=== PATIENT | female | born 2000 | race Caucasian/White ===

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

== ENCOUNTER 2020-07-08 11:00 | Inpatient (IN) ==
[2020-07-08] MEDS ORDERED: OXYTOCIN/0.9 % SODIUM CHLORIDE 30 UNITS/500 ML BAG IV ONE (18:28)
[2020-07-08] MEDS ORDERED: RINGER'S SOLUTION,LACTATED 1,000 ML IV ONE (18:28)
[2020-07-08] MEDS ORDERED: ONDANSETRON 4 MG TAB.RAPDIS PO PRN (18:28)
[2020-07-08] MEDS ORDERED: RINGER'S SOLUTION,LACTATED 1,000 ML IV PRN (18:28)
[2020-07-08] MEDS ORDERED: LIDOCAINE HCL 50 ML VIAL PERI PRN (18:28)
[2020-07-08] MEDS ORDERED: BUTORPHANOL TARTRATE 2 MG/ML VIAL IV PRN ×2 (18:28)
[2020-07-08] MEDS: MISOPROSTOL 100 MCG TABLET VG PRN ×2 (19:18→23:58)
[2020-07-08 19:53] LABS: Cocaine Ur Negative (NEGATIVE); Urine Barbiturate Negative (NEGATIVE); Urine Benzodiazepines Negative (NEGATIVE); Urine Opiates Negative (NEGATIVE); Urine PCP Negative (NEGATIVE); Urine THC Negative (NEGATIVE)
[2020-07-08] MEDS ORDERED: METHIMAZOLE 10 MG TABLET PO SCH (21:00)
[2020-07-09] MEDS: MISOPROSTOL 100 MCG TABLET VG PRN ×2 (04:31→08:26)
[2020-07-09] MEDS: ATENOLOL 25 MG TABLET PO SCH (09:22)
[2020-07-09] MEDS: METHIMAZOLE 10 MG TABLET PO SCH ×2 (09:23→22:03)
[2020-07-09] MEDS ORDERED: MISOPROSTOL 100 MCG TABLET VG ONE (12:34)
[2020-07-09] MEDS ORDERED: ONDANSETRON HCL/PF 2 MG/ML VIAL IV PRN (15:39)
[2020-07-09] MEDS ORDERED: NALOXONE HCL 1 MG/1 ML SYRG IV PRN (15:39)
[2020-07-09] MEDS ORDERED: fentaNYL CITRATE/PF 50 MCG/ML AMPUL IT SCH (15:45)
--- NOTE | 2020-07-09 16:45 | HP ---
Chief Complaint - Chief Complaint Date of Service: 07/09/20 Time of Service: 16:35 Chief Complaint: Labor induction History of Present Illness: 20 year old at 39w 1d who presented to L&D for a medical IOL due to hyperthyroidism. She denies vaginal bleeding or leakage of fluid. Her contractions are becoming stronger. Fetus is active. Medical History (Last Reviewed 07/09/20 @ 16:36 by Natasha Moreno MD) Asthma Onset Date: Unknown Weight loss, abnormal Onset Date: ~10/31/17 HSV (herpes simplex virus) infection Onset Date: ~06/2016 Chlamydia Onset Date: ~10/10/16 infection x3-07/09/15, 07/03/16, 10/10/16 Conjunctivitis Onset Date: Unknown Cough Onset Date: Unknown Gastroenteritis Onset Date: Unknown Otitis media Onset Date: Unknown Pharyngitis Onset Date: Unknown Pneumonia Onset Date: ~10/27/02 Tonsillitis Onset Date: Unknown Upper respiratory infection Onset Date: ~00 Surgical History: Surgical History (Last Reviewed 07/09/20 @ 16:36 by Natasha Moreno MD) History of adenoidectomy Onset Date: ~01/14/04 History of tonsillectomy Onset Date: ~01/14/04 Myringotomy tube status Onset Date: ~01/14/04 Family History: Family History (Last Reviewed 07/09/20 @ 16:36 by Natasha Moreon MD) Father Alive and well Grandmother , paternal Cancer breast Arthritis Mother Alive and well Social History: (Last Reviewed 07/09/20 @ 16:36 by Natasha Moreno MD) Social History: adopted: No Marital status: Single household members: significant other number of children: 0 current occupational status: employed current occupation: RN [employer] Highest education level completed: GED or equivalent Sexually Active: Yes Service: No Tobacco: Smoking Status: Former smoker Alcohol: alcohol intake: never Substance Use: substance use type: does not use Dietary Habits: caffeine: No Pets: pets and animals: cat(s) Personal Safety: victim of physical abuse: No victim of emotional abuse: No Review Of Systems (GEN) - Review of Systems Generalized/Overall Review: Present: No Symptoms Reported Misc: All systems neg except as marked Immunizations: IMMUNIZATION HX Immunizations Up to Date Yes History of Influenza Vaccine Yes Hx Pneumococcal Vaccination No Allergies/Adverse Reactions: Allergies Allergy/AdvReac Type Severity Reaction Status Date / Time cat dander Allergy Mild nasal Verified 07/08/20 18:29 congestion house dust Allergy Mild puffy Verified 07/08/20 18:29 eyes, sneezing sulfamethoxazole Allergy Mild emesis Verified 07/08/20 18:29 [From Bactrim] trimethoprim [From Bactrim] Allergy Mild emesis Verified 07/08/20 18:29 chlorpheniramine AdvReac Mild emesis Verified 07/08/20 18:29 [From [facility] DM (phenyleph-chlorphn)] dextromethorphan AdvReac Mild emesis Verified 07/08/20 18:29 [From [facility] DM (phenyleph-chlorphn)] phenylephrine AdvReac Mild emesis Verified 07/08/20 18:29 [From [facility] DM (phenyleph-chlorphn)] Home Medications: HOME MEDICATIONS atenolol 25 mg tablet 25 mg PO DAILY 12/31/19 [Last Taken 07/08/20 12:00] albuterol sulfate 90 mcg/actuation aerosol inhaler 2 puff INHALATION Q6H PRN #8.5 g 05/06/20 [Last Taken Unknown] valacyclovir 1 gram tablet 1,000 mg PO DAILY #30 tab 06/17/20 [Last Taken 07/07/20] methimazole 10 mg tablet 10 mg PO .COMPLEX #150 tab 06/30/20 [Last Taken Unknown] Vits96/Iron Fum/Folic [ S] 1 tab PO DAILY 07/09/20 [Last Taken 07/07/20] Exam - Exam Vital Signs: Vital Signs - Last Taken Temp 37.3 C 07/08/20 18:35 Pulse 77 07/09/20 09:22 Resp 18 07/08/20 18:35 BP 122/59 07/09/20 09:22 Pulse Ox 97 07/08/20 18:35 Constitutional: Present: Alert, Oriented x3, Cooperative, No distress ENT Exam: Present: hearing grossly normal Eye Exam: bilateral eye: normal inspection Neck: Present: normal inspection Back Exam: Present: normal inspection Breasts: Present: Exam deferred Respiratory: Present: lungs clear, normal breath sounds, no respiratory distress Cardiovascular/Chest: Present: regular rate, rhythm Abdomen: Present: soft, nontender, nondistended /Rectal: Present: Other - 1.5-2/70/-2 AROM for a large amount of clear fluid Extremity: Present: non-tender, no calf tenderness Skin Exam: Present: normal color, warm/dry, no cyanosis Neurologic: Present: alert, normal mood/affect, oriented x 3 Appearance: Present: appropriate appearance, appropriate insight, neat, no memory impairment, denies illness Eye contact: Present: cooperative, good eye contact, normal speech Thoughts: Present: normal thought pattern Diagnostic Studies: Laboratory Results Urine Opiates Screen Negative (NEGATIVE) 07/08/20 19:00 Barbiturate Screen Negative (NEGATIVE) 07/08/20 19:00 Ur Phencyclidine Scrn Negative (NEGATIVE) 07/08/20 19:00 Urine Amphetamine Negative (NEGATIVE) 07/08/20 19:00 U Benzodiazepines Scrn Negative (NEGATIVE) 07/08/20 19:00 Urine Cocaine Screen Negative (NEGATIVE) 07/08/20 19:00 Urine Marijuana (THC) Negative (NEGATIVE) 07/08/20 19:00 Blood Type A Positive 07/08/20 18:35 Antibody Screen Negative 07/08/20 18:35 Assessment/Plan - Narrative Narrative: 20 year old at 39w 1d 1. Medical IOL due to hyperthyroidism: the patient received cytotec 25mcg x5. AROM for clear fluid. Desires epidural. Start pitocin when able. 2. GBS negative: prophylaxis not indicated - Assessment/Plan (1) 39 weeks gestation of Problem: Acute (2) Encounter for induction of labor Problem: Acute (3) History of herpes genitalis Problem: Acute (4) History of maternal Chlamydia infection, currently in third trimester Problem: Acute (5) Marijuana use Problem: Acute (6) Tachycardia Problem: Acute (7) Hyperthyroidism Problem: Acute (8) Asthma Problem: Acute Qualifiers:
--- NOTE | 2020-07-09 18:09 | ANES ---
Anesthesia Pre Procedure Eval Vitals/Labs: Last Vital Signs Temp 37.3 C 07/08/20 18:35 Pulse 77 07/09/20 09:22 Resp 18 07/08/20 18:35 BP 122/59 07/09/20 09:22 Pulse Ox 97 07/08/20 18:35 HOME MEDICATIONS atenolol 25 mg tablet 25 mg PO DAILY 12/31/19 [Last Taken 07/08/20 12:00] albuterol sulfate 90 mcg/actuation aerosol inhaler 2 puff INHALATION Q6H PRN #8.5 g 05/06/20 [Last Taken Unknown] valacyclovir 1 gram tablet 1,000 mg PO DAILY #30 tab 06/17/20 [Last Taken 07/07/20] methimazole 10 mg tablet 10 mg PO .COMPLEX #150 tab 06/30/20 [Last Taken Unknown] Vits96/Iron Fum/Folic [ S] 1 tab PO DAILY 07/09/20 [Last Taken 07/07/20] Allergies/Adverse Reactions: Allergies Allergy/AdvReac Type Severity Reaction Status Date / Time cat dander Allergy Mild nasal Verified 07/08/20 18:29 congestion house dust Allergy Mild puffy Verified 07/08/20 18:29 eyes, sneezing sulfamethoxazole Allergy Mild emesis Verified 07/08/20 18:29 [From Bactrim] trimethoprim [From Bactrim] Allergy Mild emesis Verified 07/08/20 18:29 chlorpheniramine AdvReac Mild emesis Verified 07/08/20 18:29 [From [facility] DM (phenyleph-chlorphn)] dextromethorphan AdvReac Mild emesis Verified 07/08/20 18:29 [From [facility] DM (phenyleph-chlorphn)] phenylephrine AdvReac Mild emesis Verified 07/08/20 18:29 [From [facility] DM (phenyleph-chlorphn)] - Planned Procedure Planned Procedure: Medical Induction Medication List Reviewed:: Yes Allergies Verified: Yes Medical History (Last Reviewed 07/09/20 @ 18:08 by Freddie Beck CRNA) Asthma Onset Date: Unknown Weight loss, abnormal Onset Date: ~10/31/17 HSV (herpes simplex virus) infection Onset Date: ~06/2016 Chlamydia Onset Date: ~10/10/16 infection x3-07/09/15, 07/03/16, 10/10/16 Conjunctivitis Onset Date: Unknown Cough Onset Date: Unknown Gastroenteritis Onset Date: Unknown Otitis media Onset Date: Unknown Pharyngitis Onset Date: Unknown Pneumonia Onset Date: ~10/27/02 Tonsillitis Onset Date: Unknown Upper respiratory infection Onset Date: ~00 Surgical History (Last Reviewed 07/09/20 @ 18:08 by Freddie Beck CRNA) History of adenoidectomy Onset Date: ~01/14/04 History of tonsillectomy Onset Date: ~01/14/04 Myringotomy tube status Onset Date: ~01/14/04 Family History (Last Reviewed 07/09/20 @ 18:08 by Freddie Beck CRNA) Father Alive and well Grandmother , paternal Cancer breast Arthritis Mother Alive and well - Family Anesthesia History Family History:: no untoward family reactions to anesthesia - Airway/Neck/Teeth Within Normal Limits:: Yes Teeth Condition: intact Neck Exam: full range of motion Mallampatti Score: 2 Thyromental (T-M) distance: > 6 cm Mandibulo Hyoid distance: > 3 cm - Respiratory Respiratory History: asthma Smoking Status: Former smoker Sleep Apnea currently treated: No Sleep Apnea by current assessment: No - Cardiovascular Tolerate Activity: Good Heart Sounds: S1 & S2, Regular - Gastrointestinal NPO since: 1200 - Anesthesia Assessment and Plan ASA Class: PS, II, E Anesthesia Type Plan: Epidural Planned difficult intubation/equipment available: No
--- NOTE | 2020-07-09 18:09 | ANES ---
Post Anesthesia Discharge - Transfer of Care Transfer of Care handoff given to nurse: Yes - Anesthesia Post Op Note Anesthesia Post Op Note: Care transferred to OB RN
--- NOTE | 2020-07-09 18:09 | ANES ---
Post Anesthesia Assessment - Vital Signs Vitals: Last Vital Signs Temp 37.3 C 07/08/20 18:35 Pulse 77 07/09/20 09:22 Resp 18 07/08/20 18:35 BP 122/59 07/09/20 09:22 Pulse Ox 97 07/08/20 18:35 Airway Patency: Normal - Mental Status Level Of Consciousness: Awake - Pain Level Pain Score: 2 - N/V Assessment Nausea/Vomiting Presence: None Dehydration:: No
--- NOTE | 2020-07-09 18:11 | ANES ---
Anesthesia Procedure Note Procedure Note: ANESTHESIA PROCEDURE NOTE Date of Procedure: 07/09/2020 Time of procedure: 1750. Performed by: Ricardo Beck CRNA Spray Gunner: None. Preprocedure diagnosis: Active labor. Post procedure diagnosis: Same. Procedure: Insertion of labor epidural. 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 Findings: See below. Details of the procedure: The patient was placed in a sitting position. Back was prepped with DuraPrep. Patient was then draped in a sterile fashion. Lidocaine 1% was infiltrated to the skin and subcutaneous tissues at the level of the L3 4 interspace. The epidural space was identified using a 18-gauge Tuohy needle with [id number] technique. 20 mcg fentanyl was given intrathecally using a 27 ga. spinal needle. Epidural catheter was inserted without difficulty. Negative test dose was elicited using 5 mL of 1.5% preservative-free lidocaine plus epinephrine 1 200,000. The epidural catheter was then taped and secured in place. EBL: Minimal. Fluids: N/A. Specimen: N/A. Post procedure condition: The patient tolerated the procedure well. No complications were noted. Thank you for this consultation. Cantu CRNA
[2020-07-09] MEDS: BUPIVACAINE HCL/0.9 % NACL/PF 250 ML EP PRN (18:45)
[2020-07-09] MEDS ORDERED: METHIMAZOLE 10 MG TABLET PO SCH (21:00)
[2020-07-10] MEDS: DEXTROSE 5%-LACTATED RINGERS 1,000 ML IV PRN ×2 (00:10→11:26)
[2020-07-10] MEDS ORDERED: ACETAMINOPHEN 500 MG TABLET PO ONE ×3 (03:20→11:49)
[2020-07-10] MEDS: BUPIVACAINE HCL/0.9 % NACL/PF 250 ML EP PRN (09:12)
--- NOTE | 2020-07-10 09:37 | PN ---
Nevin Note - Interim Date: 07/10/20 Time: 09:35 Narrative: 07/10/20 09:35 The patient is having chills, she feels warm to touch and has a temperature of 37.8 C so will start triple antibiotics: ampicillin, gentamicin and clindamycin Pitocin turned off due to tracing with minimal variability and decelerations overnight. Tracing reassuring after pitocin turned off. The patient is adilene regularly and making cervical change.
[2020-07-10] MEDS ORDERED: ALBUTEROL SULFATE 200 PUFF INHALER IH PRN (09:39)
[2020-07-10] MEDS ORDERED: METHIMAZOLE 10 MG TABLET PO SCH (09:45)
[2020-07-10] MEDS: ATENOLOL 25 MG TABLET PO SCH (09:53)
[2020-07-10] MEDS: METHIMAZOLE 10 MG TABLET PO SCH ×2 (09:56→22:31)
[2020-07-10] MEDS: AMPICILLIN SODIUM 2,000 MG in NORMAL SALINE 100 ML IV SCH ×3 (10:43→22:35)
[2020-07-10] MEDS ORDERED: GENTAMICIN SULFATE 100 MG in DEXTROSE 5 % IN WATER 100 ML IV SCH ×2 (10:45)
[2020-07-10] MEDS: CLINDAMYCIN IN 0.9 % SOD CHLOR 900 MG/50 ML BAG IV SCH ×2 (11:19→17:51)
--- NOTE | 2020-07-10 11:46 | PN ---
Progess Note - Interim Date: 07/10/20 Time: 11:42 Narrative: 07/10/20 11:42 Cervix is 8/100/-1 FHT with moderate variability, no decelerations, no accelerations
[2020-07-10 11:59] LABS: Hematocrit 44.9 % (37.0-47.0); Hemoglobin 14.5 gm/dL (12.5-16.0); Mean Cell Volume 87.5 fl (78-100); Mean Corpuscular Hemoglobin 28.3 pg (27-31); Mean Corpuscular Hgb Conc 32.3 g/dl (32-36); Mean Platelet Volume 11.8 fl (8-12.5); Platelet Count 224 K/mm3 (150-450); Red Blood Count 5.13 M/mm3 (4.2-5.4); Red Cell Distribution Width 13.4 % (11.5-14.0)
[2020-07-10] MEDS ORDERED: GENTAMICIN SULFATE IV SCH ×2 (12:00)
[2020-07-10] MEDS ORDERED: WATER IV SCH ×2 (12:00)
[2020-07-10] MEDS ORDERED: DEXTROSE 5% IV SCH ×2 (12:00)
[2020-07-10] MEDS ORDERED: ceFAZolin SODIUM 2 GM in DEXTROSE 5 % IN WATER 50 ML IV PRN ×2 (12:02)
--- NOTE | 2020-07-10 12:02 | PN ---
Progess Note - Interim Date: 07/10/20 Time: 11:57 Narrative: 07/10/20 11:57 The patient's temperature is now 39.6 C. She has chills and does not feel well. Pre-eclampsia labs ordered. There is no acceleration with scalp stimulation. The patient's cervix remains unchanged. Due to all the above stated reasons will proceed with emergent primary delivery. All risks, benefits, and alternatives of the procedure were explained to the patient and the patient consented to the procedure. Pitocin continues to be off
[2020-07-10 12:07] LABS: Total Cells Counted 100
[2020-07-10] MEDS ORDERED: TERBUTALINE SULFATE 1 MG/ML VIAL ONE (12:11)
[2020-07-10] MEDS ORDERED: TERBUTALINE SULFATE 1 MG/ML VIAL SC ONE (12:13)
[2020-07-10] MEDS ORDERED: Oxytocin/Ringers Lactate 20 UNITS/1,000 ML BAG IV ONE (12:14)
[2020-07-10 12:15] LABS: Albumin * 2.5 gm/dl (3.4-5.0); Anion Gap 16.6 mmol/L (6.8-13.8); BUN/Creatinine Ratio 7.4 (9.0-21.6); Bilirubin, Total 0.6 mg/dL (0.0-1.1); Calcium * 9.1 mg/dL (7.9-10.9); Carbon Dioxide 20.6 mmol/L (24-32.6); Potassium 4.2 mmol/L (3.4-4.6); Total Protein 6.6 gm/dL (6.2-8.2)
[2020-07-10] MEDS ORDERED: diphenhydrAMINE HCL 25 MG CAPSULE PO PRN (12:23)
[2020-07-10] MEDS ORDERED: SIMETHICONE 80 MG TAB.CHEW PO PRN (12:23)
[2020-07-10] MEDS ORDERED: SENNOSIDES 8.6 MG TABLET PO PRN (12:23)
[2020-07-10] MEDS ORDERED: HYDROcodone/ACETAMINOPHEN 1 EACH TABLET PO PRN (12:23)
[2020-07-10] MEDS ORDERED: ONDANSETRON HCL/PF 2 MG/ML VIAL IV PRN (12:23)
[2020-07-10] MEDS ORDERED: BISACODYL 10 MG SUPP.RECT RC PRN (12:23)
[2020-07-10 12:42] LABS: Eosinophil 1 % (0-3); Lymphocyte 7 % (20-51); Monocyte 8 % (0-9); Neutrophil 84 % (42-75); Neutrophil # 16.8 K/mm3 (1.3-6.0); Platelet Estimate Normal (NORMAL); RBC Morphology Normal (NORMAL)
[2020-07-10] MEDS ORDERED: SODIUM BICARBONATE 1 MEQ/ML SYRG ONE (12:51)
[2020-07-10] MEDS ORDERED: LIDOCAINE HCL/EPINEPHRINE/PF 20 ML VIAL IJ ONE (12:51)
--- NOTE | 2020-07-10 14:15 | ANES ---
Anesthesia Pre Procedure Eval Vitals/Labs: Last Vital Signs Temp 37.2 C 07/10/20 14:10 Pulse 73 07/10/20 14:10 Resp 14 07/10/20 14:10 BP 104/41 07/10/20 14:10 Pulse Ox 99 07/10/20 14:10 HOME MEDICATIONS atenolol 25 mg tablet 25 mg PO DAILY 12/31/19 [Last Taken 07/08/20 12:00] albuterol sulfate 90 mcg/actuation aerosol inhaler 2 puff INHALATION Q6H PRN #8.5 g 05/06/20 [Last Taken Unknown] valacyclovir 1 gram tablet 1,000 mg PO DAILY #30 tab 06/17/20 [Last Taken 07/07/20] methimazole 10 mg tablet 10 mg PO .COMPLEX #150 tab 06/30/20 [Last Taken Unknown] Vits96/Iron Fum/Folic [ S] 1 tab PO DAILY 07/09/20 [Last Taken 07/07/20] Allergies/Adverse Reactions: Allergies Allergy/AdvReac Type Severity Reaction Status Date / Time cat dander Allergy Mild nasal Verified 07/08/20 18:29 congestion house dust Allergy Mild puffy Verified 07/08/20 18:29 eyes, sneezing sulfamethoxazole Allergy Mild emesis Verified 07/08/20 18:29 [From Bactrim] trimethoprim [From Bactrim] Allergy Mild emesis Verified 07/08/20 18:29 chlorpheniramine AdvReac Mild emesis Verified 07/08/20 18:29 [From [facility] DM (phenyleph-chlorphn)] dextromethorphan AdvReac Mild emesis Verified 07/08/20 18:29 [From [facility] DM (phenyleph-chlorphn)] phenylephrine AdvReac Mild emesis Verified 07/08/20 18:29 [From [facility] DM (phenyleph-chlorphn)] - Planned Procedure Planned Procedure: Medication List Reviewed:: Yes Allergies Verified: Yes Medical History (Last Reviewed 07/10/20 @ 14:14 by Freddie Beck CRNA) Asthma Onset Date: Unknown Weight loss, abnormal Onset Date: ~10/31/17 HSV (herpes simplex virus) infection Onset Date: ~06/2016 Chlamydia Onset Date: ~10/10/16 infection x3-07/09/15, 07/03/16, 10/10/16 Conjunctivitis Onset Date: Unknown Cough Onset Date: Unknown Gastroenteritis Onset Date: Unknown Otitis media Onset Date: Unknown Pharyngitis Onset Date: Unknown Pneumonia Onset Date: ~10/27/02 Tonsillitis Onset Date: Unknown Upper respiratory infection Onset Date: ~00 Surgical History (Last Reviewed 07/10/20 @ 14:14 by Freddie Beck CRNA) History of adenoidectomy Onset Date: ~01/14/04 History of tonsillectomy Onset Date: ~01/14/04 Myringotomy tube status Onset Date: ~01/14/04 Family History (Last Reviewed 07/10/20 @ 14:14 by Freddie Beck CRNA) Father Alive and well Grandmother , paternal Cancer breast Arthritis Mother Alive and well - Family Anesthesia History Family History:: no untoward family reactions to anesthesia - Airway/Neck/Teeth Within Normal Limits:: Yes Teeth Condition: intact Neck Exam: full range of motion Mallampatti Score: 2 Thyromental (T-M) distance: > 6 cm Mandibulo Hyoid distance: > 3 cm - Respiratory Respiratory History: asthma Respiratory Physical: lungs clear Smoking Status: Former smoker Sleep Apnea currently treated: No Sleep Apnea by current assessment: No - Cardiovascular Tolerate Activity: Good Heart Sounds: S1 & S2, Regular - Gastrointestinal NPO since: [place] - Anesthesia Assessment and Plan ASA Class: PS, II, E Anesthesia Type Plan: Epidural Planned difficult intubation/equipment available: No
--- NOTE | 2020-07-10 14:16 | ANES ---
Post Anesthesia Discharge - Transfer of Care Transfer of Care handoff given to nurse: Yes - Discharge from PACU Discharge from PACU when meets criteria: Yes
--- NOTE | 2020-07-10 14:20 | ANES ---
Post Anesthesia Assessment - Vital Signs Vitals: Last Vital Signs Temp 37.2 C 07/10/20 14:15 Pulse 79 07/10/20 14:15 Resp 18 07/10/20 14:15 BP 105/52 07/10/20 14:15 Pulse Ox 99 07/10/20 14:15 Airway Patency: Normal - Mental Status Level Of Consciousness: Awake - Pain Level Pain Score: 2 - N/V Assessment Nausea/Vomiting Presence: None Dehydration:: No
--- NOTE | 2020-07-10 14:40 | OR ---
Operative Report - Dictated Report Narrative: Date of delivery: 07/10/2020 Time of delivery: 1312 Gender: female weight: 3502 grams APGARS: 8/9 Preoperative diagnosis: IUP at 39w 2d, hyperthyroidism, history of tachycardia, non-reassuring heart tracing Postoperative diagnosis: same, pre-eclampsia, thick meconium Procedure: Primary delivery Surgeon: Dr. Moreno Description of the procedure: The patient was taken to the operating room where the patient's epidural was redosed. She was then prepped and draped in the lithotomy position in the standard surgical fashion. A Pfannestiel skin incision was made. The incision was carried through the subcutaneous tissue. The fascia was incised in the midline. The fascia incision was extended bilaterally. The fascia was tented up and dissected from the underlying rectus muscles. The rectus muscles were in the midline. The peritoneum was entered bluntly. A large Juvenal retractor was placed in the abdomen. The uterus was incised in a low transverse fashion. The head was delivered. The rest of the infant delivered atraumatically and without difficulty. Thick meconium was noted. The cord was clamped and cut and the infant was handed off to the attending pediatric staff. Cord blood was collected. The placenta was delivered by expression and appeared intact. The uterus was cleared of all clots and debris. The uterine incision was closed with 2 layers of 0-vicryl. Hemostasis was adequate. The fascia was closed with 1-0 vicryl. The subcutaneous tissue was closed with 2-0 vicryl. The skin was closed with 3-0 monocryl on a Ze needle. [place] gill was applied to the incision. A dressing was applied to the incision. All sponge, lap, and needle counts were correct. The patient tolerated the procedure well. She was transferred to the recovery room in stable condition. EBL: 800 mL Complications: none Specimens: cord blood, placenta History for Definition: * The number of deliveries resulting in a live the patient experienced prior to current hospitalization * The previous delivery of live twins or any live multiple gestation is considered one live event. *If primagravida or nulliparous is documented select zero for the number of previous live births. Live Events: 0
[2020-07-10] MEDS: KETOROLAC TROMETHAMINE 30 MG/ML VIAL IV PRN ×2 (16:03→22:31)
[2020-07-10] MEDS: HYDROcodone/ACETAMINOPHEN 1 EACH TABLET PO PRN ×2 (16:03→19:05)
[2020-07-10] MEDS ORDERED: GENTAMICIN SULFATE LEVEL XX ONE (21:30)
[2020-07-10] MEDS: DOCUSATE SODIUM 100 MG CAPSULE PO SCH (22:31)
[2020-07-11] MEDS: HYDROcodone/ACETAMINOPHEN 1 EACH TABLET PO PRN ×6 (00:39→18:47)
[2020-07-11] MEDS: CLINDAMYCIN IN 0.9 % SOD CHLOR 900 MG/50 ML BAG IV SCH ×2 (01:47→09:53)
[2020-07-11] MEDS: AMPICILLIN SODIUM 2,000 MG in NORMAL SALINE 100 ML IV SCH ×2 (04:59→11:15)
[2020-07-11] MEDS: IBUPROFEN 800 MG TABLET PO PRN ×3 (05:36→17:10)
[2020-07-11] MEDS ORDERED: ATENOLOL 25 MG TABLET PO SCH (09:00)
[2020-07-11] MEDS: DOCUSATE SODIUM 100 MG CAPSULE PO SCH ×2 (09:14→21:14)
[2020-07-11] MEDS: ATENOLOL 25 MG TABLET PO SCH (09:15)
[2020-07-11] MEDS: PRENATAL VITS96/IRON FUM/FOLIC 1 TAB TABLET PO SCH (09:15)
[2020-07-11] MEDS: METHIMAZOLE 10 MG TABLET PO SCH ×2 (09:15→21:14)
--- NOTE | 2020-07-11 10:44 | PN ---
Subjective - Date and Time Seen Date: 07/11/20 Time: 10:42 Subjective Narrative: Patient without complaints Objective Objective Narrative: See vital signs - Review of Systems Generalized/Overall Review: Reports: No Symptoms Reported Misc: All systems neg except as marked - Vitals Vitals: Last Vital Signs Temp 36.6 C 07/11/20 06:20 Pulse 78 07/11/20 09:15 Resp 18 07/11/20 06:20 BP 120/73 07/11/20 09:15 Pulse Ox 98 07/11/20 06:20 - Abnormal Lab Findings Abnormal Lab Findings: Abnormal Lab Results 07/10/20 07/10/20 07/10/20 Range/Units 08:48 08:48 Unknown WBC 20.0 H (4.0-10.5) K/mm3 Neutrophils % (Manual) 84 H (42-75) % Lymphocytes % (Manual) 7 L (20-51) % Neutrophils # (Manual) 16.8 H (1.3-6.0) K/mm3 Lymphocytes # (Manual) 1.4 L (1.5-3.5) k/mm3 Monocytes # (Manual) 1.6 H (0.0-1.0) k/mm3 Carbon Dioxide 20.6 L (24-32.6) mmol/L Anion Gap 16.6 H (6.8-13.8) mmol/L BUN/Creatinine Ratio 7.4 L (9.0-21.6) ALT 16 L (19-67) U/L Alkaline Phosphatase 234 H (50-170) U/L Albumin 2.5 L (3.4-5.0) gm/dl Ur Random Creatinine 52.7 L (60-200) mg/dL U Random Total Protein 74.0 H (0-12) mg/dL U [place] Prot/Creat Ratio 1404 H (0-199) mg/gm - Exam Constitutional: Present: Alert, Oriented x3, Cooperative, No distress ENT Exam: Present: hearing grossly normal Neck: Present: normal inspection Breasts: Present: Exam deferred Abdomen: Present: soft, nontender, nondistended - Dressing c/d/i Extremity: Present: non-tender, no calf tenderness Skin Exam: Present: normal color, warm/dry, no cyanosis Neurologic: Present: alert, normal mood/affect, oriented x 3 Appearance: Present: appropriate appearance, appropriate insight, neat, no memory impairment Eye contact: Present: cooperative, good eye contact, normal speech Thoughts: Present: normal thought pattern Cauti Physician Documentation - Urinary Catheter Management Urethral (Cooper) Urethral Indwelling: No Date of Insertion: 07/09/20 Time of Insertion: 18:40 Date of Removal: 07/11/20 Time of Removal: 01:15 Assessment/Plan Plan Narrative: POD 1 s/p primary delivery Doing well Discharge tomorrow - Problems/Diagnosis (1) 39 weeks gestation of Problem: Acute (2) Encounter for induction of labor Problem: Acute (3) History of herpes genitalis Problem: Acute (4) History of maternal Chlamydia infection, currently in third trimester Problem: Acute (5) Marijuana use Problem: Acute (6) Tachycardia Problem: Acute (7) Hyperthyroidism Problem: Acute (8) Asthma Problem: Acute Qualifiers:
[2020-07-12] MEDS: IBUPROFEN 800 MG TABLET PO PRN ×4 (00:14→20:18)
[2020-07-12] MEDS: HYDROcodone/ACETAMINOPHEN 1 EACH TABLET PO PRN ×5 (00:14→19:07)
--- NOTE | 2020-07-12 08:38 | PN ---
Subjective - Date and Time Seen Date: 07/12/20 Time: 08:36 Subjective Narrative: Patient without complaints Objective Objective Narrative: See vital signs - Review of Systems Generalized/Overall Review: Reports: No Symptoms Reported Misc: All systems neg except as marked - Vitals Vitals: Last Vital Signs Temp 36.3 C 07/12/20 06:20 Pulse 66 07/12/20 06:20 Resp 16 07/12/20 06:20 BP 126/63 07/12/20 06:20 Pulse Ox 99 07/12/20 06:20 - Exam Constitutional: Present: Alert, Oriented x3, Cooperative ENT Exam: Present: hearing grossly normal Abdomen: Present: soft, nontender, nondistended - incision c/d/i Extremity: Present: non-tender, no calf tenderness Skin Exam: Present: normal color, warm/dry, no cyanosis Neurologic: Present: alert, normal mood/affect, oriented x 3 Appearance: Present: appropriate appearance, appropriate insight, neat, no memory impairment Eye contact: Present: cooperative, good eye contact, normal speech Thoughts: Present: normal thought pattern Cauti Physician Documentation - Urinary Catheter Management Urethral (Cooper) Urethral Indwelling: No Date of Insertion: 07/09/20 Time of Insertion: 18:40 Date of Removal: 07/11/20 Time of Removal: 01:15 Assessment/Plan Plan Narrative: POD 2 s/p primary delivery Doing well Discharge today if baby cleared for discharge - Problems/Diagnosis (1) 39 weeks gestation of Problem: Acute (2) Encounter for induction of labor Problem: Acute (3) History of herpes genitalis Problem: Acute (4) History of maternal Chlamydia infection, currently in third trimester Problem: Acute (5) Marijuana use Problem: Acute (6) Tachycardia Problem: Acute (7) Hyperthyroidism Problem: Acute (8) Asthma Problem: Acute Qualifiers: Asthma severity: mild Asthma persistence: intermittent Asthma complication type: uncomplicated Qualified Code(s): J45.20 - Mild intermittent asthma, uncomplicated
[2020-07-12] MEDS: PRENATAL VITS96/IRON FUM/FOLIC 1 TAB TABLET PO SCH (09:27)
[2020-07-12] MEDS: ATENOLOL 25 MG TABLET PO SCH (09:27)
[2020-07-12] MEDS: DOCUSATE SODIUM 100 MG CAPSULE PO SCH ×2 (09:29→20:18)
[2020-07-12] MEDS: METHIMAZOLE 10 MG TABLET PO SCH ×2 (09:30→22:18)
[2020-07-13] MEDS: HYDROcodone/ACETAMINOPHEN 1 EACH TABLET PO PRN ×3 (00:27→09:41)
[2020-07-13] MEDS: IBUPROFEN 800 MG TABLET PO PRN ×2 (05:35→11:46)
[2020-07-13 06:50] VITALS: BP 130/69
--- NOTE | 2020-07-13 07:19 | PN ---
Subjective - Date and Time Seen Date: 07/13/20 Time: 07:17 Subjective Narrative: Patient without complaints Objective Objective Narrative: See vital signs - Review of Systems Generalized/Overall Review: Reports: No Symptoms Reported Misc: All systems neg except as marked - Vitals Vitals: Last Vital Signs Temp 36.8 C 07/13/20 06:43 Pulse 84 07/13/20 06:43 Resp 16 07/13/20 06:43 BP 130/69 07/13/20 06:43 Pulse Ox 96 07/13/20 06:43 - Exam Constitutional: Present: Alert, Oriented x3, Cooperative, No distress Abdomen: Present: soft, nontender, nondistended - cellulitis superior to incision but not on the incision Extremity: Present: non-tender, no calf tenderness Skin Exam: Present: normal color, warm/dry, no cyanosis Neurologic: Present: alert, normal mood/affect, oriented x 3 Appearance: Present: appropriate appearance, appropriate insight, neat, no memory impairment Eye contact: Present: cooperative, good eye contact, normal speech Thoughts: Present: normal thought pattern Cauti Physician Documentation - Urinary Catheter Management Urethral (Cooper) Urethral Indwelling: No Date of Insertion: 07/09/20 Time of Insertion: 18:40 Date of Removal: 07/11/20 Time of Removal: 01:15 Assessment/Plan Plan Narrative: POD 3 s/p primary delivery Doing well Discharge today - Problems/Diagnosis (1) 39 weeks gestation of Problem: Acute (2) Encounter for induction of labor Problem: Acute (3) History of herpes genitalis Problem: Acute (4) History of maternal Chlamydia infection, currently in third trimester Problem: Acute (5) Marijuana use Problem: Acute (6) Tachycardia Problem: Acute (7) Hyperthyroidism Problem: Acute (8) Asthma Problem: Acute Qualifiers: Asthma severity: mild Asthma persistence: intermittent Asthma complication type: uncomplicated Qualified Code(s): J45.20 - Mild intermittent asthma, uncomplicated
--- NOTE | 2020-07-13 07:22 | DS ---
OB Discharge Summary (1) 39 weeks gestation of Status: Acute (2) Encounter for induction of labor Status: Acute (3) History of herpes genitalis Status: Acute (4) History of maternal Chlamydia infection, currently in third trimester Status: Acute (5) Marijuana use Status: Acute (6) Tachycardia Status: Acute (7) Hyperthyroidism Status: Acute (8) Asthma Status: Acute Qualifiers: Asthma severity: mild Asthma persistence: intermittent Asthma complication type: uncomplicated Qualified Code(s): J45.20 - Mild intermittent asthma, uncomplicated Delivery Date: 07/10/20 Delivery Time: 13:12 :: 20 Para:: 1 Gestational weeks:: 39 Gestational days:: 2 Intrapartum Procedures: Delivered, Primary Section, Delivery- Low Transverse, Anesthesia - Epidural Procedures: Antibiotics1 /OP Complications: Preeclampsia/GHTN, Other - cellulitis Discharge Diagnosis: Term -Delivered, Other - chorioamnionitis - Discharge Information Date of Discharge: 07/13/20 Hospital Course: The patient presented to L&D for a medical IOL. She was taken for delivery due to NRFHT as well as maternal fever consistent with chorioamnionitis. She received antibiotics until she was 24 hours afebrile. She developed cellulitis superior to her incision for which she will follow-up in 2 days. Discharge Location: Home Disposition: Home self-care Referrals: Deepthi Francisco MD [Primary Care Provider] - Activity on Discharge:: Activity as tolerated, Pelvic Rest Discharge Diet: General/regular food Additional Patient Instructions (free text): Dasia's follow up appointment is scheduled for SundayAugust 23 @ 1:[address] Moreno. Lelia's follow up appointment is scheduled for Her blood type is A+ Discharge weight 7l bs 3.7 oz Discharge bilrubin Continue to breastfeed her at least every 2-[address] her on her back to sleep in her own bassinet or crib. No loose blankets, bumper pads, stuffed animals or pillows. Thank you for choosing [facility]. If you have any questions or concerns, please don't hesitate to call us at [phone]. Prescriptions (Any new or edited meds): HYDROcodone/ACETAMINOPHEN [[place]bright 5-325] 1 ea PO Q6H PRN 5 Days #14 tab PRN Reason: Moderate Pain (Pain Scale 4-6) Transmission Status: Received by [facility] Complete Home Medications List: Complete Home Medication List: atenolol 25 mg tablet 25 mg PO DAILY 12/31/19 albuterol sulfate 90 mcg/actuation aerosol inhaler 2 puff INHALATION Q6H PRN #8.5 g 05/06/20 methimazole 10 mg tablet 10 mg PO .COMPLEX #150 tab 06/30/20 Vits96/Iron Fum/Folic [ S] 1 tab PO DAILY 07/09/20 Atenolol [Tenormin] 25 mg PO DAILY tab 07/11/20 Docusate Sodium [Colace] 100 mg PO BID cap 07/11/20 HYDROcodone/ACETAMINOPHEN [Albright 5-325] 1 ea PO Q6H PRN 5 Days #14 tab 07/11/20 Ibuprofen [Motrin] 800 mg PO Q6H PRN tab 07/11/20 Methimazole [Tapazole] 10 mg PO HS tab 07/11/20 Methimazole [Tapazole] 30 mg PO QAM tab 07/11/20 - Plan Discharge to:: Home Comment:: Routine Discharge Instructions Follow up in office in:: Other - 2 days for incision check as well as 6 weeks PP - [place] Information Weight (Grams): 3,502 Sex: Female Score 1 min: 8 Score 5 min: 9 Circumcision: Not Applicable Complications: Decreased Variability, Multiple Late Decels, Meconium Other Complications: Primary c/s d/t NRFHT
[2020-07-13] MEDS: PRENATAL VITS96/IRON FUM/FOLIC 1 TAB TABLET PO SCH (09:38)
[2020-07-13] MEDS: METHIMAZOLE 10 MG TABLET PO SCH (09:38)
[2020-07-13] MEDS: DOCUSATE SODIUM 100 MG CAPSULE PO SCH (09:38)
[2020-07-13] MEDS: ATENOLOL 25 MG TABLET PO SCH (09:38)
== END 2020-07-13 12:15 | disposition home or self-care (01) | DRG 786 ==
LOC: OB 18:17
PROVIDERS: ADMIT Obstetrics & Gynecology; ATTEND Obstetrics & Gynecology